=== PATIENT | female | born 1930 | race Caucasian/White ===

== ENCOUNTER → 2017-05-03 | Outpatient (REF) ==
[~2017-05-03] MED LIST: ASPIRIN 32325 MG/TAB PO; CELEBREX 200MG200 MG PO; COLACE 100100 MG/CAP PO; FERROUS SU325 MG/TAB PO; FLEXERIL 1010 MG/TAB PO; FOLIC ACID 11 MG/TA1 PO; HYDRODIURIL50 MG PO; LEVEMIR100 U/ML SC; NORCO 325 MG-51 TAB PO; NOVOLOG FLEX100 U/ML SC; PROTONIX 40MG T40 MG PO; VANCOCIN HCL1 GM IV; VITAMIN C500 MG PO; ZESTRIL 20MG TA20 MG PO; ZOFRAN 4MG T4 MG/TAB PO
== END ==
LOC: ZLAB.WCH 10:36
DX: Z01.89 Encounter for other specified special examinations (principal)

== ENCOUNTER → 2017-11-09 | Outpatient (REF) | LOC: ZLAB.WCH 19:03 | DX: Z01.89 Encounter for other specified special examinations (principal) ==

== ENCOUNTER → 2018-11-01 | Outpatient (REF) | LOC: ZLAB.WCH 13:02 | DX: Z01.89 Encounter for other specified special examinations (principal) ==

== ENCOUNTER 2022-03-01 18:38 | Inpatient (IN) | payer MEDICARE, OTHER ==
[~2022-03-01] VITALS: Ht 152.4 cm; Wt 95.1 kg
[2022-03-01 19:59] LABS: BASO # 0.1 K/mm3 (0.0-0.2); BASO % 0.6 % (0.0-2.0); EOS % 0.3 % (0.0-4.0); GRAN # 10.4 K/mm3 (1.4-6.5); GRAN % 89.3 % (42.2-75.2); HEMATOCRIT 42.8 % (37.0-47.0); HEMOGLOBIN 14.1 g/dl (12.5-16.0); LYMPH # 0.5 K/mm3 (1.2-3.4); LYMPH % 4.2 % (20.0-51.0); MEAN CELL VOLUME 93 fl (80.0-100.0); MEAN CORPUSCULAR HEMOGLOBIN 31 pg (27-31); MEAN CORPUSCULAR HGB CONC 33 g/dl (33.0-37.0); MONO # 0.6 K/mm3 (0.1-0.6); MONO % 4.8 % (1.7-9.3); PLATELET COUNT 216 K/mm3 (130-400); RED BLOOD COUNT 4.62 M/mm3 (4.10-5.30); REDCELL DISTRIBUTION WIDTH-CV 13.7 % (11.5-14.5)
[2022-03-01 20:05] LABS: PROTHROMBIN TIME 11.1 SECONDS (9.7-12.8)
[2022-03-01 20:15] LABS: ALBUMIN 3.7 gm/dL (3.4-4.8); BILIRUBIN,TOTAL 0.9 mg/dL (0.2-1.2); CALCIUM 8.9 mg/dL (8.4-10.2); CREATININE, serum 0.95 mg/dL (0.57-1.11); POTASSIUM 4.1 mmol/L (3.5-4.5); TOTAL PROTEIN 6.6 gm/dL (6.2-8.1)
[2022-03-01 20:21] LABS: TROPONIN-I 0.026 ng/mL (0.00-0.033)
[2022-03-01 21:03] LABS: COLLECTION METHOD CLEAN CATCH
[2022-03-01 21:11] LABS: MUCOUS Present (NOT PRESENT); PH 5 (5-8); SQUAMOUS EPITHELIAL 0-2 /hpf (0-10); URINE APPEARANCE Cloudy (CLEAR/HAZY); URINE BACTERIA Rare /hpf (NONE SEEN); URINE BILIRUBIN Negative (NEGATIVE); URINE BLOOD Negative (NEGATIVE); URINE COLOR Amber (YELLOW); URINE GLUCOSE 3+ (NEGATIVE); URINE KETONE 1+ (NEGATIVE); URINE LEUKOCYTE ESTERASE Negative (NEGATIVE); URINE NITRATE Positive (NEGATIVE); URINE PROTEIN(semi-quant) Negative (NEGATIVE); URINE RBC 0-2 /hpf (0-2); URINE UROBILINOGEN Negative (NEGATIVE)
[2022-03-01] MEDS ORDERED: NORVASC 5MG5 MG/TAB PO (21:50)
[2022-03-01] MEDS ORDERED: LASIX 20MG TABL20 MG PO (21:50)
[2022-03-01] MEDS ORDERED: COZAAR 25MG25 MG/TAB PO (21:50)
--- NOTE | 2022-03-01 21:59 | NUR ---
ATTEMPTED TO CALL FOR REPORT FROM CHECKMAN, RN NOT AVAILABLE, CHECKMAN WILL CALL THIS NURSE BACK
--- NOTE | 2022-03-01 22:15 | NUR ---
RECEIVED REPORT FROM Calvin RN, DAYA. WAITING FOR PATIENT TO ARRIVE FROM [place].
--- NOTE | 2022-03-01 22:56 | NUR ---
PATIENT ARRIVED TO ROOM VIA E.R. CART/PCT ACCOMPANIED PATIENT. TELE IN PLACE. OXYGEN PER OXIMASK. PATIENT VOMITED SMALL AMOUNT LIGHT GREEN EMESIS CLEAR WITH SOME SMALL FLECKS OF UNDIGESTED FOOD
[2022-03-01 22:57] VITALS: BP 148/73; PULSE 92; TEMP 97.7
--- NOTE | 2022-03-01 23:15 | NUR ---
PATIENT REQUESTING TO EAT, CALLED PROVIDER, ORDER OBTAINED TO FEED PATIENT THEN MAKE PATIENT NPO AFTER MIDNIGHT.
[2022-03-01 23:58] VITALS: BP 138/46; PULSE 82; TEMP 97.8
[2022-03-02] VITALS (11 sets, daily range): BP systolic 111–140; BP diastolic 32–61; PULSE 78–88; TEMP 97.6–98.8
--- NOTE | 2022-03-02 04:00 | NUR ---
PATIENT REFUSED TO HAVE SCD PLACED TO RLE, REFUSED TO HAVE JOSTIN TO LLE.
--- NOTE | 2022-03-02 07:13 | NUR ---
CHANGE OF SHIFT REPORT GIVEN TO DAY SHIFT RNIVETTE.
--- NOTE | 2022-03-02 10:00 | NUR ---
Youth Agent met with patient to discuss discharge planning. Patient has a hip fracture and has not had surgery scheduled at this time. Patient lives outside of [place] with her daughter, Perlita (ph#[phone]) and sees Dr. Cárdenas for primary care. Patient obtains medications from [facility] with no difficulties and uses a cane for ambulation. Patient reports she is normally independent with ADLS. SW discussed post acute rehab with patient who is agreeable that she will need this at time of discharge. Patient's preferences for rehab are 1) [facility] and 2) [facility]. YSABEL contacted Shruthi at [facility] and gave referral. YSABEL also contacted Stormy at and faxed referral. SW contacted patient's daughter, Perlita to provide update. Perlita advised she will bring in copy of patient's DPOA-HC and would like to be notified when patient's surgery is scheduled. YSABEL provided this request to RN. Discharge Plan: Post acute rehab
--- NOTE | 2022-03-02 13:51 | NUR ---
DISCUSSED WITH DR. MARKS, PT IS CLEARED FOR SURGERY. ORTHO NOTIFIED.
--- NOTE | 2022-03-02 15:08 | NUR ---
PT TAKEN TO SURGERY @ THIS TIME. PT HAS BEEN GIVEN A BED BATH, GOWN HAS BEEN CHANGED ET PT REPOSITIONED IN BED. PT STATES THAT SHE HAS NO PAIN WHEN LAYING STILL BUT HAS SEVERE PAIN WITH MOVEMENT. PT BEGINS TO BECOME NAUSEOUS WHEN HAVING PAIN ET REPOSITIONING IN BED. RAHMAN CATHETER IN PLACE ET DRAINING DEPENDENTLY.
--- NOTE | 2022-03-02 19:00 | NUR ---
RECEIVED CHANGE OF SHIFT REPORT FROM DAY SHIFT RN.
--- NOTE | 2022-03-02 19:16 | NUR ---
RECEIVED REPORT FROM VENEER DRIER TAILERALVAREZ. WAITING FOR PATIENT ARRIVAL TO ROOM FROM RECOVERY ROOM. BOTH DAUGHTERS IN ROOM WAITING FOR PATIENT.
--- NOTE | 2022-03-02 19:29 | NUR ---
PATIENT TO ROOM PER HOSP BED WITH SCRAP BALLER TRANSPORTING PATIENT. PATIENT DROWSY POST OP BUT AROUSES TO NAME, DAUGHTERS VISITED WITH PATIENT BRIEFLY. DENIES SURGICAL PAIN/NAUSEA CURRENTLY. TELE IN PLACE. IV FLUIDS RUNNING SLOWLY. RAHMAN IN PLACE WITH CLEAR MED YELLOW URINE AT THIS TIME.
[2022-03-03] VITALS (7 sets, daily range): BP systolic 111–130; BP diastolic 39–55; PULSE 75–85; TEMP 97.6–99.2
--- NOTE | 2022-03-03 02:25 | NUR ---
CONFIRMED WITH OUTER DIAMETER TECHNICIAN HOSP REGARDING IV FLUIDS&MEDS POST OP. PROVIDER OKAY FOR IV FLUIDS TO CONTINUE UNTIL PATIENT IS MORE ALERT AND POST N/V TO RUN AT 50 ML/HR.
--- NOTE | 2022-03-03 07:01 | NUR ---
CHANGE OF SHIFT REPORT GIVEN TO DAY SHIFT RNIVETTE.
--- NOTE | 2022-03-03 07:18 | NUR ---
IV SALINE LOCKED TO INT @ THIS TIME. PT IS RESTING QUIETLY IN BED, DENIES PAIN @ REST, A&OX3. DRINKING WATER ET DENIES NAUSEA. BREAKFAST HAS BEEN ORDERED FROM KITCHEN. PT DENIES SOB, O2 ON @ 3L NC. BED ALARM IS ON. CALL LIGHT WITHIN REACH.
--- NOTE | 2022-03-03 09:29 | NUR ---
Initial visit; Patient thanked Shoe Coverer for looking in on her and offering God's blessings and to keep her in Shoe Coverer's prayers.
--- NOTE | 2022-03-03 10:31 | NUR ---
Commissary Officer faxed clinical updates to patient's second preference, Justen Kruger. [facility] to view updates electronically.
--- NOTE | 2022-03-03 10:41 | NUR ---
Message left for Helena at [facility]. Notified Helena of possible discharge on Sunday.
--- NOTE | 2022-03-03 11:33 | NUR ---
YSABEL spoke with Alexia at [facility]. Patient's admission on Sunday still pending review from weekend physician. Notified Alexia that i will be on tomorrow and will touch base again with nursing staff.
--- NOTE | 2022-03-03 18:00 | NUR ---
PT USES CALL LIGHT TO USE BR. PT HAS BEEN UP TO CHAIR WITH PHYSICAL THERAPY ONCE TODAY, IS ENCOURAGED TO STAND ET USE BSC. PT REQUIRES MAX 2 ASSIST TO SIT UP IN BED ET GET FEET ON FLOOR. PT IS ABLE TO STAND BUT IS UNABLE TO TAKE STEPS. PT IS ASSISTED BACK INTO BED ET PLACED ONTO BEDPAN TO URINATE. PT IS INSTRUCTED TO USE THE CALL LIGHT WHEN FINISHED, VERBALIZES UNDERTSTANDING. CALL LIGHT WITHIN REACH.
--- NOTE | 2022-03-04 00:21 | NUR ---
PATIENT ALERT AND ORIENTED BUT DROWSY. X2 ASSIST TO BEDPAN. C/O PAIN ONLY WHEN MOVING, OTHERWISE DENIES PAIN. MEDS ADMINISTERED PER EMAR. X3 GAMMA INCISIONS ARE CDI WITH GAUZE AND TEGADERM. BLOOD SUGAR 186, SSI PER ORDER. REMAINS ON 3 L O2 VIA NC.
[2022-03-04 03:56] VITALS: BP 138/37; PULSE 81; TEMP 97.8
--- NOTE | 2022-03-04 04:08 | NUR ---
PATIENT C/O HEARTBURN, CALL TO [facility] AND ORDER FOR PROTONIX NOW. NO RELIEF AFTER THE PROTONIX AND ADDITIONAL CALL PLACED TO [facility]. GI COCKTAIL ORDERED AND ADMINISTERED PER EMAR. STILL NO RELIEF. NOTICED ON TELE MONITOR PT HR IN 30s. PATIENT ALERT AND ORIENTED BUT FATIGUED AND C/O HEARTBURN STILL. VSS. BLOOD SUGAR WNL. ORDER FOR EKG. CALL PLACED TO SUNDANCE TO NOTIFY OF PT STATUS, STAT LABS ORDERED. AWAITING FOR THE RESULTS.
[2022-03-04 07:48] VITALS: BP 125/87; PULSE 81; TEMP 97.8
[2022-03-04 07:50] LABS: BASO % 0.1 % (0.0-2.0); EOS # 0.1 K/mm3 (0.0-0.7); EOS % 0.6 % (0.0-4.0); GRAN % 78.9 % (42.2-75.2); LYMPH # 0.8 K/mm3 (1.2-3.4); LYMPH % 7.5 % (20.0-51.0); MEAN CELL VOLUME 92 fl (80.0-100.0); MEAN CORPUSCULAR HGB CONC 34 g/dl (33.0-37.0); MEAN PLATELET VOLUME 12.1 fl (7.4-10.4); MONO # 1.3 K/mm3 (0.1-0.6); MONO % 12.6 % (1.7-9.3); PLATELET COUNT 180 K/mm3 (130-400); REDCELL DISTRIBUTION WIDTH-CV 14.2 % (11.5-14.5)
[2022-03-04 07:52] LABS: HEMATOCRIT 31.2 % (37.0-47.0); HEMOGLOBIN 10.5 g/dl (12.5-16.0); MEAN CORPUSCULAR HEMOGLOBIN 31 pg (27-31)
[2022-03-04 08:05] LABS: CALCIUM 8.2 mg/dL (8.4-10.2); CREATININE, serum 1.29 mg/dL (0.57-1.11); MAGNESIUM 2.3 mg/dL (1.6-2.6); POTASSIUM 4.1 mmol/L (3.5-4.5)
--- NOTE | 2022-03-04 10:08 | NUR ---
pipe production worker spoke with Alexia at [facility]. She is going to check with the accepting physician today to determine if they are able to accept the patient for transfer tomorrow. She will call back once she has an answer.
--- NOTE | 2022-03-04 11:20 | NUR ---
PT UP TO RECLINER WITH MAX ASSIST X3. UNABLE TO BEAR WEIGHT THROUGH LEGS. PASSED LINETTE AND VOIDED RETURNED TO RECLINER. 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 NO OOZING OR WEAPING NOTED. LEGS OPEN TO AIR AT THIS TIME.
[2022-03-04 12:00] VITALS: BP 156/46; PULSE 85; TEMP 98
[2022-03-04 15:40] VITALS: BP 161/73; PULSE 96; TEMP 98.3
[2022-03-04 19:21] VITALS: BP 124/40; PULSE 84; TEMP 97.7
--- NOTE | 2022-03-04 22:56 | NUR ---
PATIENT ALERT AND ORIENTED. IV TO R UPPER ARM INFILTRATED AND REMOVED, CATHETER INTACT. RESTARTED 22 G X1 ATTEMPT TO L HAND. BLOOD SUGAR 193, SSI PER ORDER. REMAINS ON 2 L O2 VIA NC. X3 INCISIONS TO R GAMMA NAIL SITE CDI WITH GAUZE AND TEGADERM. BLE ELEVATED AND OPEN TO AIR. DENYING PAIN LONG SHE IS IN BED. PUREWICK IN PLACE TO LOW CONTINUOUS SUCTION.
[2022-03-04 23:25] VITALS: BP 134/70; PULSE 118; TEMP 99
[2022-03-05 03:35] VITALS: BP 125/37; PULSE 82; TEMP 99
[2022-03-05 07:03] LABS: HEMATOCRIT 28.8 % (37.0-47.0); HEMOGLOBIN 9.4 g/dl (12.5-16.0)
[2022-03-05 07:18] LABS: CALCIUM 8.2 mg/dL (8.4-10.2); MAGNESIUM 2.3 mg/dL (1.6-2.6); POTASSIUM 3.8 mmol/L (3.5-4.5)
[2022-03-05 07:26] VITALS: BP 144/47; PULSE 89; TEMP 98.5
--- NOTE | 2022-03-05 10:38 | NUR ---
PT UP TO BSC WITH MAX ASSIST X2. VOIDED AND HAD MED BM. PT REPORTS HAVING SEVERAL STOOLS SINCE RECIEVING BOWEL MEDICATIONS. PT'S BLE WITH DIABETIC VENOUS STASIS ULCERS DRY WITH NO DRAINAGE NOTED. PLAN ON TRANSFER TO SWING BED OR REHAB FACILITY LATER TODAY.
[2022-03-05 11:09] VITALS: BP 125/36; PULSE 88; TEMP 98.1
[2022-03-05] MEDS ORDERED: FERRO-TIME325 MG PO (15:03)
[2022-03-05] MEDS ORDERED: OSCAL 500 TAB500 MG PO (15:03)
[2022-03-05] MEDS ORDERED: IPRATROPIUM BROM3 M1 IH (15:03)
[2022-03-05] MEDS ORDERED: ASPI325T6 PO (15:03)
[2022-03-05] MEDS ORDERED: LEVEMIR FLEX100 U/ML SQ (15:04)
[2022-03-05] MEDS ORDERED: COLACE 100100 MG/CAP PO (15:04)
[2022-03-05] MEDS ORDERED: LASIX 40MG TABL40 MG PO (15:04)
[2022-03-05] MEDS ORDERED: NOVLOG SQ ×2 (15:04)
[2022-03-05] MEDS ORDERED: SENNA-LAX8.6 MG PO (15:04)
[2022-03-05] MEDS ORDERED: MIRALAX PA17 GM/Dose PO (15:04)
[2022-03-05] MEDS ORDERED: VITAMIN C500 MG PO (15:05)
[2022-03-05] MEDS ORDERED: DUO-KAPS1 CAP PO (15:05)
[2022-03-05] MEDS ORDERED: ROXICODONE 55 MG/TAB PO (15:06)
--- NOTE | 2022-03-05 16:20 | NUR ---
drum worker informed patient is ready fr transfer/discharge. SW contacted [facility] to confirm their census is capped and unable to take today. This social work program coordinator contacted [facility]; Starr informs due to no communication, they are unable to accept today, but possibly tomorrow. Steve BRIONES, Teri CochranCriminal Justice Teacher notified. 15:43: Teri CochranCriminal Justice Teacher informs has spoken to [facility], and patient bed available. Peer to peer communication completed and patient accepted. SW collaborated with Teri CochranCriminal Justice Teacher, Dr. Corona, Steve BRIONES, and [facility] to coordinate patient transport. EMS transfer orders placed in patient chart, copy sent with pt clinical transfer packet. Patient daughter Perlita updated on plan of care and is in support. *Discharge plan: Patient transfer via [facility] to [facility].*
--- NOTE | 2022-03-05 16:28 | NUR ---
REPORT TO VICKIE BRIONES @[facility]. PT TO TRANSFER TO [facility] PER EMS AT THIS TIME.
== END 2022-03-05 16:39 | disposition swing bed (61) | DRG 480 ==
LOC: COL.ER 18:38 → SURG 21:02
PROVIDERS: Internal Medicine; Nurse Practitioner Primary Care; Orthopaedic Surgery Sports Medicine; ADMIT Internal Medicine
PROC: 0QS636Z Reposition Right Upper Femur with Intramedullary Internal Fixation Device, Percutaneous Approach (ICD-10-PCS; principal; 2022-03-02 15:30)
DX: S72.21XA Displaced subtrochanteric fracture of right femur, initial encounter for closed fracture (principal); J96.01 Acute respiratory failure with hypoxia; I50.33 Acute on chronic diastolic (congestive) heart failure; E87.2 Acidosis; J44.1 Chronic obstructive pulmonary disease with (acute) exacerbation; N39.0 Urinary tract infection, site not specified; D62 Acute posthemorrhagic anemia; K21.9 Gastro-esophageal reflux disease without esophagitis; Z66 Do not resuscitate; M19.90 Unspecified osteoarthritis, unspecified site; E11.65 Type 2 diabetes mellitus with hyperglycemia; I48.91 Unspecified atrial fibrillation; I11.0 Hypertensive heart disease with heart failure; I49.1 Atrial premature depolarization; I08.3 Combined rheumatic disorders of mitral, aortic and tricuspid valves; I27.20 Pulmonary hypertension, unspecified; Z20.822 Contact with and (suspected) exposure to COVID-19; W01.0XXA Fall on same level from slipping, tripping and stumbling without subsequent striking against object, initial encounter; Y93.89 Activity, other specified; Y92.008 Other place in unspecified non-institutional (private) residence as the place of occurrence of the external cause; Z87.891 Personal history of nicotine dependence; Z79.4 Long term (current) use of insulin
CPT/HCPCS: 99223-AI; 99232-AI; 99233-AI; 99239; A9284; C1713; C1769; J0330; J0690; J0696; J1100; J1815; J1940; J2270; J2405; J2704; J2795; J2920; J2930; J3010; J7060